=== PATIENT | female | born 1955 | race Caucasian/White ===

== ENCOUNTER → 2017-03-07 13:34 | Emergency (ER) | payer SELFPAY ==
[~2017-03-07 13:34] MED LIST: Ketorolac INJ* 60 MG/2 ML VIAL IM ONE; Lidocaine 1% INJ* 10 MG/ML 30 ML SDV ONE; Midazolam concentrated* 5 MG/ML 1 ml VIAL ONE; fentaNYL* 50 MCG/ML 5 ML VIAL (250 MCG VIAL) ONE; oxyCODONE/Acetamin 5/325 MG* TAB PO ONE
[2017-03-07 13:54] VITALS: BP 150/98
--- NOTE | 2017-03-07 15:08 | RAD ---
HISTORY: Left elbow pain status post fall COMPARISONS: None VIEWS: 2, lateral projections of the left elbow FINDINGS: Evaluation is limited by the lack of frontal projections. BONE DENSITY: Normal. BONES: There is a comminuted and displaced fracture through the proximal ulna. JOINTS: There is no arthropathy. There is a joint effusion. ALIGNMENT: There is dislocation of the radial-capitellar articulation with superior displacement of the capitellum with respect to the radial head. There is ulnar trochlear subluxation SOFT TISSUES: Unremarkable. OTHER FINDINGS: None. IMPRESSION: 1. COMMINUTED AND DISPLACED FRACTURE OF THE PROXIMAL ULNA, WITH ULNAR-HUMERAL SUBLUXATION. 2. RIGHT-HUMERAL DISLOCATION.
--- NOTE | 2017-03-07 15:09 | RAD ---
HISTORY: Left hand and wrist pain status post fall COMPARISONS: None VIEWS: 4, frontal and oblique views of the left hand and wrist FINDINGS: BONE DENSITY: Normal. BONES: There is a dorsally angulated comminuted fracture of the distal radial metaphysis with articular extension. JOINTS: There is no arthropathy. ALIGNMENT: There is no dislocation. SOFT TISSUES: Unremarkable. OTHER FINDINGS: None. IMPRESSION: DORSALLY ANGULATED FRACTURE OF THE DISTAL RADIAL METAPHYSIS WITH ARTICULAR EXTENSION
--- NOTE | 2017-03-07 15:10 | RAD ---
HISTORY: Left shoulder pain status post fall COMPARISONS: None VIEWS: 2, frontal and outlet views of the left shoulder FINDINGS: BONE DENSITY: There is diffuse osteopenia. BONES: There is no displaced fracture. JOINTS: There is mild a.c. and glenohumeral osteoarthritis. ALIGNMENT: There is no dislocation. SOFT TISSUES: Unremarkable. OTHER FINDINGS: None. IMPRESSION: NO ACUTE OSSEOUS INJURY. IF SYMPTOMS PERSIST, RECOMMEND REPEAT IMAGING.
--- NOTE | 2017-03-07 18:28 | RAD ---
Indication: Left elbow injury. Portable view of the left elbow is reviewed. There is fracture dislocation of the proximal ulna. Final film demonstrates reduction of previously seen dislocation. IMPRESSION: Fracture dislocation of the proximal ulna with reduction.
--- NOTE | 2017-03-07 19:35 | RAD ---
Indication: Left elbow and wrist fracture. CT of the forearm was obtained from the elbow to the wrist. Sagittal and coronal reconstructed images were obtained. Comminuted fracture of the distal radius is noted. Intra-articular extension is noted. The major fracture fragments appear in near anatomic alignment. The proximal radius appears to be radially dislocated relative to the capitellum. Comminuted fracture of the proximal ulna is noted with intra-articular extension. IMPRESSION: Comminuted fracture distal radius. There is a radial and likely posterior dislocation of the radius relative to the capitellum at its proximal end..
--- NOTE | 2017-03-08 00:39 | CONS ---
EMERGENCY ROOM CONSULTATION NOTE: DATE OF CONSULT: 03/07/17 - EMERGENCY DEPT HISTORY OF PRESENT ILLNESS: Ms. 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 She fell on ice today at work on left outstretched extremity. She is here with wrist and elbow pain. Arina is a relatively healthy woman. She is on no current prescription medicines. She takes occasional ibuprofen. She denies allergies. She has never had a heart attack. She does not have diabetes, has been feeling well recently except for she does smoke a pack a day, but has no chest pain and no significant shortness of breath. PHYSICAL EXAM: Her examination shows her to be an alert, oriented and appropriate female, relatively healthy. Minimal stigmata of smoking. The left upper extremity is swollen at the wrist and elbow. She has intact radial pulse and intact sensation 3 dermatomes to the hand. Her x-rays show her to have a dorsally displaced distal radius fracture, possibly with a split into the joint. The elbow shows a dislocated radial head lateral and proximal, and an olecranon fracture. Basically an adult Monteggia. I administered 1% lidocaine plain 10 cc into her elbow joint and obtained a fracture hematoma. I was assisted by my colleague, Dr. Ferguson. The two of us manipulated her elbow with some Versed and fentanyl on board and were able to achieve a reduction of the elbow dislocation. This was verified with a lateral x- ray. We then splinted the elbow. She is scheduled to get a CT scan tonight. If that verifies satisfactory reduction of the elbow, then she could go home and this could be fixed electively. This note is pending outcome of the CT scan. [id number]/[facility] #: [id number] ROBERTA
--- NOTE | 2017-03-09 07:50 | ED ---
Adan Oconnell Angela, scribed for Asael jA MD on 03/07/17 at 1426 . Upper Extremity Pain - HPI Summary HPI Summary: This pt is a 61 y/o female presenting to [facility] [place] c/o left wrist and elbow pain s/ p fall today. Pt reports she slipped on ice and fell, injuring her left elbow and wrist. She denies head strike or LOC. Pt notes she took 3 ibuprofen this morning with mild relief. She rates her pain 10/10 in severity. Her pain is mildly alleviated with ice. Denies headache, neck pain, right arm pain. - History of Current Complaint Chief Complaint: EDExtremityUpper Stated Complaint: FALL/LT UPPER EXTREMITY PAIN Time Seen by Provider: 03/07/17 14:19 Hx Obtained From: Patient Mechanism Of Injury: Fall From A Standing Position - after slipping on ice Onset/Duration: Started Hours Ago, Traumatic, Still Present Timing: Lasting Hours Severity Currently: Severe Pain Location: Elbow - left, Wrist - left Aggravating Factor(s): Movement Alleviating Factor(s): Ice, OTC Meds - ibuprofen Associated Signs & Symptoms: Positive: Negative PMH/Surg Hx/FS Hx/Imm Hx Endocrine/Hematology History: Denies: Hx Diabetes Cardiovascular History: Denies: Hx Hypertension Infectious Disease History: No Infectious Disease History: Denies: Traveled Outside the [place] in Last 30 Days - Family History Known Family History: Negative: Cardiac Disease, Hypertension, Diabetes - Social History Alcohol Use: None Substance Use Type: Reports: None Smoking Status (MU): Never Smoked Tobacco Review of Systems Negative: Fever, Chills Eyes: Negative ENT: Negative Cardiovascular: Negative Respiratory: Negative Musculoskeletal: Other - left wrist pain, left elbow pain Negative: Other - neck pain Negative: Headache All Other Systems Reviewed And Are Negative: Yes Physical Exam - Summary Physical Exam Summary: VITAL SIGNS: Reviewed. GENERAL: Patient is a well-developed and nourished female who is lying comfortable in the stretcher. Patient is not in any acute respiratory distress. HEAD AND FACE: No signs of trauma. No ecchymosis, hematomas or skull depressions. No sinus tenderness. EYES: PERRLA, EOMI x 2, No injected conjunctiva, no nystagmus. EARS: Hearing grossly intact. Ear canals and tympanic membranes are within normal limits. MOUTH: Oropharynx within normal limits. NECK: Supple, trachea is midline, no adenopathy, no JVD, no carotid bruit, no c- spine tenderness, neck with full ROM. CHEST: Symmetric, no tenderness at palpation LUNGS: Clear to auscultation bilaterally. No wheezing or crackles. CVS: Regular rate and rhythm, S1 and S2 present, no murmurs or gallops appreciated. ABDOMEN: Soft, non-tender. No signs of distention. No rebound no guarding, and no masses palpated. Bowel sounds are normal. EXTREMITIES: no cyanosis or clubbing. Left wrist with some deformity. Decreased ROM of left wrist secondary to pain. Decreased ROM of shoulder secondary to pain. Good pulses. Good capillary refill. NEURO: Alert and oriented x 3. No acute neurological deficits. Speech is normal and follows commands. SKIN: Dry and warm Triage Information Reviewed: Yes Vital Signs On Initial Exam: Initial Vitals Temp Pulse Resp BP Pulse Ox 98.7 F 76 18 150/98 99 03/07/17 13:50 03/07/17 13:50 03/07/17 13:50 03/07/17 13:50 03/07/17 13:50 Vital Signs Reviewed: Yes Diagnostics - Vital Signs Vital Signs Temp Pulse Resp BP Pulse Ox 03/07/17 13:50 98.7 F 76 18 150/98 99 - Laboratory Lab Statement: Any lab studies that have been ordered have been reviewed, and results considered in the medical decision making process. - Radiology Left wrist XR Xray Interpretation: Positive (See Comments) - IMPRESSION: Dorsally angulated fracture of the distal radial metaphysis with articular extension. Dr. Aj has reviewed this radiology report. Radiology Interpretation Completed By: Radiologist Left hand XR Xray Interpretation: Positive (See Comments) - IMPRESSION: Dorsally angulated fracture of the distal radial metaphysis with articular extension. Dr. Aj has reviewed this radiology report. Radiology Interpretation Completed By: Radiologist Left shoulder XR Xray Interpretation: No Acute Changes - IMPRESSION: No acute osseous injury. If symptoms persist, recommend repeat imaging. Dr. Aj has reviewed this radiology report. Radiology Interpretation Completed By: Radiologist Left elbow XR Xray Interpretation: Positive (See Comments) - IMPRESSION: 1. Comminuted and displaced fracture of the proximal ulna with ulnar-humeral subluxation. 2. Right -humeral dislocation. Dr. Aj has reviewed this radiology report. Radiology Interpretation Completed By: Radiologist Left elbow XR s/p reduction Xray Interpretation: Positive (See Comments) - IMPRESSION: Fracture dislocation of the proximal ulna with reduction. Dr. Aj has reviewed this radiology report. Radiology Interpretation Completed By: Radiologist Re-Evaluation - Re-Evaluation First Eval Re-Evaluation Time: 17:05 Comment: Dr. Cheek in to see the pt. Course/Dx - Course Course Of Treatment: This pt is a 61 y/o female presenting to [facility] c/o left wrist and elbow pain s/p fall today. Pt reports she slipped on ice and fell, injuring her left elbow and wrist. She denies head strike or LOC. Pt notes she took 3 ibuprofen this morning with mild relief. She rates her pain 10/10 in severity. Her pain is mildly alleviated with ice. Denies headache, neck pain, right arm pain. Left wrist XR shows dorsally angulated fracture of the distal radial metaphysis with articular extension. Left elbow XR shows 1. Comminuted and displaced fracture of the proximal ulna with ulnar-humeral subluxation. 2. Right-humeral dislocation. I discussed pts case with Dr. Cheek and Dr. Ferguson, orthopedists, who came and requested a conscious sedation for reduction of the fractures. They successfully reduced the fractures and recommended a CT of the left elbow and wrist, they recommend for the pt to be discharged home and follow up at their offices. She will be given a prescription for [place] for the pain. She was placed in a shoulder immobilizer. Pt is hemodynamically stable, alert and oriented x3. She is tolerating PO, therefore she will be discharged home. Assessment/Plan: PROCEDURE NOTE: Procedural Sedation. Indications: Fracture reduction. [place] Protocol: a timeout was performed and the correct patient and site were verified. Consent: The risks and benefits of monitored anesthesia care, including the risk of aspiration, deep sedation requiring airway management including possible intubation, nausea and vomiting and the risks of not performing the procedure, including severe pain and inability to complete the procedure, were all discussed with the patient. The alternatives of performing the procedure, including local anesthesia and IV analgesia, also discussed. The patient has a ride home available. ASA Class: II-mild systemic disease. Pre-anesthesia evaluation, including history, exam, and informed consent is documented in the ED note above. Monitoring: Continuous monitoring of heart rate, respiratory rate, pulse oximetry and ETCO2. Supplemental oxygen prior to and during procedure via nasal cannula. Resuscitation equipment available at the bedside during sedation. The patient received Versed and Fentanyl and dosages were recorded on the sedation form. The patient was recovered from the sedation without complication or incident. Patient returned to pre-sedation level of awareness. The monitoring was discontinued at this time. Post-anesthesia evaluation: Respiratory function, cardiovascular function, temperature, and mental status did return to pre-anesthetic state. Pain is controlled. - Diagnoses Differential Diagnosis/HQI/PQRI: Positive: Bursitis, Contusion, Fracture (Closed ), Strain, Sprain Provider Diagnoses: Elbow fracture, Wrist fracture - Physician Notifications Discussed Care of Patient With: Esteban Cheek Time Discussed With Above Provider: 16:30 Instructed by Provider To: MD Will See In ED - I discussed pt care with Dr. Cheek, orthopedist, who will come consult on the pt. Discharge - Discharge Plan Condition: Stable Disposition: HOME Prescriptions: HYDROcodone/ACETAMIN 5-325 MG* [[place] 5-325 TAB*] 1 tab PO Q6H PRN #12 tab MDD 4 PRN Reason: Pain Patient Education Materials: Elbow Fracture (ED), Wrist Fracture in Adults (ED) , Procedural Sedation (ED) Referrals: Ester HAMILTON,Isaiah Nieves [Medical Doctor] - Esteban Cheek MD [Medical Doctor] - Ibrahima Ferguson MD [Medical Doctor] - Additional Instructions: Please follow up with Dr. Cheek or Dr. Ferguson, from orthopedics. RETURN TO THE ED FOR ANY WORSENING SYMPTOMS. The documentation as recorded by the Adan wells Angela accurately reflects the service I personally performed and the decisions made by Jean Marie shaw Walter, MD.
== END | disposition home or self-care (01) ==
LOC: ED 13:34
DX: S42.402A Unspecified fracture of lower end of left humerus, initial encounter for closed fracture (principal); S62.102A Fracture of unspecified carpal bone, left wrist, initial encounter for closed fracture; M25.522 Pain in left elbow; W19.XXXA Unspecified fall, initial encounter; Y92.9 Unspecified place or not applicable; W00.9XXA Unspecified fall due to ice and snow, initial encounter
CPT/HCPCS: 96372; 99283; A9270-GY; J1885; J2250; J3010

== ENCOUNTER 2017-03-09 09:08 | Day surgery (SDC) | payer SELFPAY ==
--- NOTE | 2017-03-09 03:41 | HP ---
HISTORY AND PHYSICAL: DATE OF ADMISSION: 03/09/17 PLANNED PROCEDURE: Left olecranon, coronoid process, open reduction internal fixation for a proximal ulna and olecranon fracture, dislocation of the elbow. Also, planned closed or open reduction of radial head. Open reduction internal fixation left distal radius. 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 The patient was walking in a parking lot and slipped on some ice. She landed on her left elbow and then wrist. The patient thinks that her upper body, her torso, then landed on her elbow and wrist. The patient had significant pain, swelling, and some deformity about the left elbow and wrist and [place] [facility] [place] Surgery consult was called. Dr. Cheek saw the patient and I joined him. Dr. Cheek performed a hematoma block of the proximal ulna, left, fracture and we attempted a closed relocation of a dislocated left elbow radial head. X-ray, lateral of the left elbow appeared to demonstrate relocation. We next placed a posterior splint and sugar-tong forearm splint, left. The patient was neurovascularly intact before and after that closed reduction in the emergency department. CT scan was then performed. CT scan confirmed what the x-ray had demonstrated, that the patient had a left proximal ulna fracture including the olecranon and coronoid process with a dislocation posteriorly of the left radial head, a so called adult Monteggia fracture. The patient also had a displaced intraarticular left distal radius fracture. CT demonstrated that the radial head was in fact dislocated posterolaterally. It demonstrated a level of comminution about the coronoid process with a larger fracture fragment medially. Fracture of the coronoid enters the semilunar notch. Then, the main oblique fracture of the proximal ulna is the fracture line that shows significant displacement and shortening. I measured 4 cm of shortening. There is also a displaced intraarticular fracture of the left distal radius. There is a intraarticular fracture line that runs sagittally. All other smaller pieces of comminution, there are large fragments of the volar rim and dorsal rim of the distal radius. Discussed with the patient a closed relocation of radial head under general anesthesia with a more elective fixation of fractures. Discussed admission to hospital. Ultimately, we decided as the patient's pain was manageable and she was neurovascularly intact distally and she greatly preferred to go home, that we would discharge the patient from the emergency department. The patient's surgery will be planned to occur within days so as to minimize time with radial head dislocated. I and the patient and her were comfortable with the plan. The patient saw her primary care physician this morning as I had directed. He optimized and cleared her for surgery. The patient presented to clinic today for history and physical for planned procedure tomorrow, 03/09/17. The patient acknowledges some pain when she is not bracing her elbow against her chest. She acknowledges some increased swelling of the fingers. The pain has been manageable with a hydrocodone derivative product. PAST MEDICAL HISTORY: None. PAST SURGICAL HISTORY: Bilateral tubal ligation. MEDICATIONS: [place] p.r.n. given by the emergency department. ALLERGIES: No known drug allergies. 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 The patient has a 30-pack year history, approximate. The patient described smoking 3 quarters of a pack per day times approximately 40 years. REVIEW OF SYSTEMS: No headache, nausea, or vomiting. No chest pain, heart palpitations, or shortness of breath. No numbness and tingling in the left upper extremity. No other joint pain. PHYSICAL EXAMINATION Height is 64.1 inches and weight is 168 pounds for a BMI of 28.8. Pain level is 10/10. No acute distress, alert and oriented, appropriate mood and affect, appropriate dress and hygiene, non-antalgic gait, well coordinated bilateral upper and lower extremities. Left upper extremity exam reveals a posterior splint from the left hand to the left upper arm. I have also put in place a sugar-tong forearm splint, which extends to the level of the metacarpophalangeal joints volarly. The patient does have increased swelling of her fingers. Neurovascularly intact distally. IMAGING: I reviewed x-rays pre and post attempted relocation maneuver as well as CT scan of the left wrist and elbow from 03/07/17. There is a left radial head posterolateral dislocation without radial head fracture. There is a comminuted proximal ulna fracture. There is an oblique fracture line of the proximal ulna, proximal at the level of the coronoid process. There is a fracture, comminuted of the coronoid process. It appears as though the most solid, largest fragment of the coronoid processes medial that fracture line extends into the semilunar notch that includes the coronoid process. These films also demonstrate a comminuted displaced fracture of the distal radius, left. There is some displacement. Volar tilt is lost, but only several degrees of dorsal tilt are present. There is an intraarticular fracture line in the coronal plane that is a correction from earlier, that intraarticular fracture line is in the coronal rather than the sagittal plane. There is a predominant volar rim and predominant dorsal rim fragment, intraarticular. ASSESSMENT: 1. Left Monteggia fracture type 2A (fracture dislocation, left elbow) with complex left proximal ulna fracture, displaced, comminuted. Includes fractures of olecranon and coronoid process. Radial head dislocation, posterolateral. 2. Displaced, intraarticular, 3 or more pieces, fracture of the left distal radius. PLAN: 1. Continue in the splint. Use sling for comfort. 2. I recommended ice over the elbow and wrist as well as elevation to minimize swelling intraoperatively or preoperatively. 3. I prescribed the patient Percocet to take as needed for pain control. 4. To the operating room tomorrow, 03/09/17 for an open reduction internal fixation left proximal ulna, including olecranon and coronoid process as well as open reduction internal fixation left distal radius. 5. I spoke with the patient and her about several alternative scenarios for procedure. If I found the patient too swollen to perform open procedure, I might consider closed reduction under general anesthesia of the radial head and if I found the elbow to be stable through a reasonable range of motion, I might consider splinting the patient and doing definitive surgery next week. Another option would be if the proximal ulna open reduction internal fixation takes a significant period of time, I would consider performing only that component of the procedure and delaying the distal radius open reduction internal fixation until the following week. The patient and her had no questions about that. I briefly discussed risks and potential complications of procedures. The patient will be nothing by mouth after midnight. [id number]/[facility] #: [id number] [facility]Meet
[~2017-03-09 09:08] MED LIST changes: +Buffered Lidocaine 0.9% SYRIN* 5 ML/SYR SYRINGE INTRADERM ONE; -Ketorolac INJ* 60 MG/2 ML VIAL IM ONE; -Lidocaine 1% INJ* 10 MG/ML 30 ML SDV ONE; -Midazolam concentrated* 5 MG/ML 1 ml VIAL ONE; -fentaNYL* 50 MCG/ML 5 ML VIAL (250 MCG VIAL) ONE; -oxyCODONE/Acetamin 5/325 MG* TAB PO ONE
[2017-03-09] MEDS ORDERED: ceFAZolin 2 GM PREMIX (*) 2 GM/50 ML BAG IVPB ONE (09:33)
[2017-03-09] MEDS ORDERED: Buffered Lidocaine 0.9% SYRIN* 5 ML/SYR SYRINGE ONE (09:33)
[2017-03-09] MEDS ORDERED: fentaNYL* 50 MCG/ML 2 ML VIAL (100 MCG VIAL) ONE ×3 (11:19→14:30)
[2017-03-09] MEDS ORDERED: Midazolam* 1 MG/ML 2 ML VIAL (2 MG) ONE (11:19)
[2017-03-09] MEDS ORDERED: Propofol* 10 MG/ML 20 ML BTL IV PUSH ONE (11:19)
[2017-03-09] MEDS ORDERED: Atracurium* 10 MG/ML 10 ML VIAL ONE (12:04)
[2017-03-09] MEDS ORDERED: Bupivacaine 0.5% SDV PF* 10-30ML VIAL ONE (12:07)
[2017-03-09] MEDS ORDERED: Dexamethasone IV* 4 MG/ML 1 ML (4 MG) ONE (12:55)
[2017-03-09] MEDS ORDERED: Metoprolol Tartrate IV* 1 MG/ML 5 ML VIAL ONE (15:03)
[2017-03-09] MEDS ORDERED: Phenylephrine INJ* 10 MG/ML 1 ML VIAL (10 MG) ONE (15:12)
[2017-03-09] MEDS ORDERED: Ondansetron INJ* 2 MG/ML VIAL ONE (16:09)
[2017-03-09] MEDS ORDERED: Naloxone* 0.4 MG/ML 1 ML VIAL IV PRN (16:11)
[2017-03-09] MEDS ORDERED: HYDROmorphone INJ* 1 MG/ML CARPUJECT SYRINGE IV PRN (16:11)
[2017-03-09] MEDS ORDERED: DiMENhydriNATE IV* 50 MG/ML VIAL IV PUSH PRN (16:11)
[2017-03-09] MEDS ORDERED: oxyCODONE TAB* 5 MG TAB PO PRN (16:11)
[2017-03-09] MEDS ORDERED: oxyCODONE/Acetamin 5/325 MG* TAB PO PRN (16:11)
[2017-03-09] MEDS ORDERED: Ondansetron INJ* 2 MG/ML VIAL IV PRN (16:11)
[2017-03-09] MEDS ORDERED: fentaNYL* 50 MCG/ML 2 ML VIAL (100 MCG VIAL) IV PRN (16:11)
[2017-03-09] MEDS ORDERED: Ketorolac INJ* 30 MG/ML 1 ML VIAL ONE (16:26)
--- NOTE | 2017-03-09 17:51 | RAD ---
Indication: Follow-up left traumatic ulnar fracture. 4 views of left elbow demonstrates internal fixation of ulnar fracture with multiple screws and a plate. Fracture fragments appear in near anatomic alignment. IMPRESSION: Internal fixation proximal ulnar fracture.
[2017-03-09] MEDS ORDERED: oxyCODONE/Acetamin 5/325 MG* TAB ONE (17:52)
[2017-03-09 18:27] VITALS: BP 117/73
--- NOTE | 2017-03-14 07:22 | OP ---
DATE OF OPERATION: 03/09/17 [facility] DATE OF : 55 SURGEON: Ibrahima Ferguson MD. NURSERY RN: CICI Jett. A physician news assistant was required for the length of the procedure for positioning, assistance with exposure, instrumentation, retraction, and closure. ANESTHESIOLOGIST: Juan José Cardenas MD. ANESTHESIA: General anesthesia, local anesthesia 10 cc at 0.5% Marcaine without epinephrine, local anesthesia. PRE-OP DIAGNOSES: 1. Left elbow Monteggia fracture, type IIA, with fracture, comminuted, displaced, of the left olecranon and coronoid process, and a dislocated radial head. 2. Displaced fracture, left distal radius, intraarticular, 3 or more pieces. POST-OP DIAGNOSES: 1. Left elbow Monteggia fracture, type IIA, with fracture, comminuted, displaced, of the left olecranon and coronoid process, and a dislocated radial head. 2. Displaced fracture, left distal radius, intraarticular, 3 or more pieces. PROCEDURES: 1. Open treatment left elbow Monteggia fracture dislocation with internal fixation. 2. Open reduction and internal fixation, proximal ulna, olecranon. 3. Open reduction and internal fixation, left proximal ulna, coronoid. 4. Decompression in situ left ulnar nerve, at the cubital tunnel. ANTIBIOTICS: 2 g Ancef IV. TOURNIQUET TIME: 120 minutes at 250 mmHg. SPECIMEN: None. IMPLANTS: A 2.7/3.5 variable angle olecranon left locking plate, 4 hole. Also 4 screws of size 2.7 mm, fully threaded, were utilized. IV FLUIDS: 2450 cc lactated Ringer's. ESTIMATED BLOOD LOSS: Less than 200 cc. 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 The patient was walking in a parking lot and slipped and fell on her left elbow and wrist and her body landed on her elbow and wrist. The patient came to the emergency department at [facility] [place]. She was seen by Dr. Cheek and then myself. X-rays and CT scan showed a Monteggia fracture dislocation of the left elbow with fractures at the left olecranon and coronoid process as well as a dislocation of the radial head. The 2D CT images made the fracture lines somewhat difficult to fully discern. A 3D reconstruction made visualization of the fracture fragments much easier. See my history and physical for full history of injury and treatment. Closed relocation was attempted in the emergency room prior to CT scan. It was unsuccessful. The patient was discharged home and was told she would need surgery within 48 hours. The patient saw her primary care physician next morning and then saw me in clinic for history and physical. We scheduled surgery for today, 03/09/17. The patient had been placed in a posterior elbow splint and sugar tong forearm splint. She also had an intraarticular displaced left distal radius fracture noted on x-ray and CT scans. We discussed preoperatively risks and potential complications of surgery including bleeding, infection, nerve or blood vessel injury, elbow pain, stiffness, osteoarthritis, recurrence of dislocation as well wrist pain, stiffness, osteoarthritis. Prior to the procedure, I discussed 2 possibilities. One is that if the soft tissues were poor quality, once the splint was taken down, I would attempt a closed relocation and splinting and delay surgery. The other eventuality would be if the open reduction internal fixation of the elbow was sufficiently complex and long, I would consider delaying the wrist, distal radius component of the procedure until next week. The patient and her family agreed and understood. DESCRIPTION OF PROCEDURE: Preoperatively, the patient signed a written consent. Operative extremity was marked in the preoperative holding. The patient was taken back to the operating room and placed supine on operating room table. The patient was sedated and intubated. The patient was then placed in a lateral decubitus position with the left side up. Axillary roll was placed. Bony prominences were padded. Patterson bag was hardened. An upper arm acevedo, alexandra type was applied to the table. Nonsterile tourniquet was applied. The left upper extremity was prepped and draped. Surgical time-out was performed. Tourniquet was elevated to 120 mmHg after the Esmarch was applied. The soft tissues and skin were noted to be healthy enough for an open surgery. Posterior skin incision was made laterally around the tip of the olecranon. I continued dissection through soft tissues with deep knife and spreading dissection with scissors. I dissected down to the olecranon fracture. This had clots removed with a sponge and then irrigation for improved visualization. Next, I decompressed the ulnar nerve. I knew I would to be doing much medial dissection to expose the coronoid process and therefore decompression and the visualization of the ulnar nerve would be required. I identified the ulnar nerve and released it proximal to the medial epicondyle. I then dissected down to the ulnar nerve at the level of the medial epicondyle , cutting through Hoffman's ligament. I was able to follow the ulnar nerve nicely from perhaps 5-cm proximal to the cubital tunnel to between the two heads of the flexor carpi ulnaris. I had studied my 3D reconstructions of the CT scan carefully preoperatively. It is clear that there was a sagittal oriented fracture line down the middle of the coronoid process. I decided preoperatively that I would reconstruct the coronoid by fixing these 2 coronoid fragments first. I next improved my visualization of the coronoid with the Kathryn and Scham approach to the coronoid. I released FCU (flexor carpi ulnaris) fascia off of the olecranon, but also off its origin of the medial epicondyle. I was able to lift the FCU, ulnar head off of the coronoid. As I had decompressed the ulnar nerve, I know exactly where that was and was able to safely retract it while releasing the FCU tissue up off of the coronoid process and visualized more and more of the coronoid. I did not visualize the tip of the coronoid nor did I release the MCL ligament. However, this improved exposure of the medial aspect of the coronoid, allowed me to access the place where I knew I would be placing fixation through. Once I had improved exposure of the coronoid, I next went about reducing the coronoid fracture fragments. I did so with my fingers and then I placed a bone clamp. To assess the quality of reduction, I was able to visualize these fragments posteriorly. I also used a dental mirror to visualize the quality of the reduction, from within the joint. The reduction looked excellent. I next placed a 2.7-mm fully threaded screw across the 2 components of the coronoid. Fixation was excellent. I made sure that these were not overly wrong. Bite in the bone was excellent. Now that I had reduced and fixed the coronoid, I next desired to reduce and fix the olecranon and coronoid, combined fragment to the remainder of the proximal ulna, which represented more distal fracture fragment. I reduced this second large fracture line with bone clamps after curetting and rongeuring any fibrous tissue remaining. Bone clamps maintained the reduction and then I placed two 2.57-mm fully threaded screws from lateral to anteromedial across this fracture site. Reduction was maintained well. It should be stated that all this reducing and fixation work with lag screws was done after I relocated the radial head. After all lag screws have been placed, I liked my reduction and the time was up to supplement this fixation. I next picked an appropriate length olecranon plate. I reduced it to bone with 2 nonlocking screws and then filled it with locking screws proximal and distal to the fracture sites. The elbow had no crepitus with full flexion and extension of the elbow and pronation and supination of the forearm. No blocks to motion. With full range of motion, the radial head was stable and located. There was no instability with valgus stress at the elbow. With varus stress at the elbow, there was increased opening about the lateral elbow. I briefly thought about doing a lateral ulnar collateral ligament repair, but decided that the lateral side of the elbow should tighten up postoperatively. Irrigation. I next closed the FCU fascia to ECU and anconeus fascia over the plate distally through proximally and closed the triceps fascia that I had split over the plate. I made sure not to close too much of the fascia medially because when I did I felt that it was constricting the ulnar nerve from its free, unconstricted course that I have been careful to establish intraoperatively. Closure of fascial layer was with [id number] stitches using Vicryl 0 suture. I then closed the subcutaneous tissue with buried simple stitches using Vicryl 2.0 suture. Closure of the skin with mildred. Xeroform. 10 cc of local anesthesia were injected, 0.5% Marcaine without epinephrine. 4x4s, sterile Webril. The elbow was flexed to 70 degrees in a posterior splint followed by sugar tong forearm splint were placed. The patient was awakened and brought to the PACU. I made a decision intraoperatively based on the length of the procedure after I had completed my open reduction internal fixation about the elbow, that it would be best to wait and perform the distal radius open reduction and internal fixation on a separate day. The splint that I applied extended beyond the wrist and so also stabilized the left distal radius fracture. DISPOSITION: The patient was given Keflex, 7-day course for infection prophylaxis and Percocet as needed for pain control. She was provided a sling. She was told that we would be scheduling open reduction and internal fixation of left distal radius in the operating room next week. [id number]/[facility] #: [id number] MTDD
--- NOTE | 2017-03-17 14:55 | RAD ---
INDICATION: Traumatic fracture of the right ulna status post operative reduction and internal fixation. COMPARISON: Comparison is made with a prior x-ray study of the right elbow from March 07, 2017. TECHNIQUE: 13 seconds of intermittent fluoroscopic guidance were provided and 16 spot films of the right elbow were obtained in the operating room. FINDINGS: The films demonstrate operative reduction internal fixation of a fracture of the proximal ulna. There is a surgical metallic plate present along the posterior aspect of the proximal ulna transfixed with multiple screws spanning the fracture fragments. There are also interfragmentary screws. The bones are in normal alignment. IMPRESSION: INTRAOPERATIVE CONTROL FILMS. CPT II Codes: 6045F
== END 2017-03-09 18:00 | disposition home or self-care (01) ==
LOC: OR 09:08
PROVIDERS: ATTEND Orthopaedic Surgery
DX: S52.272A Monteggia's fracture of left ulna, initial encounter for closed fracture (principal); S52.572A Other intraarticular fracture of lower end of left radius, initial encounter for closed fracture; W00.2XXA Other fall from one level to another due to ice and snow, initial encounter; Y92.481 Parking lot as the place of occurrence of the external cause; F17.210 Nicotine dependence, cigarettes, uncomplicated
CPT/HCPCS: 76000; A9270-GY; C1713; C1776; J0690; J1100; J1885; J2250; J2405; J2704; J3010; J3490

== ENCOUNTER 2017-03-16 05:51 | Day surgery (SDC) | payer OTHER ==
[2017-03-16] MEDS ORDERED: Dexamethasone IV* 4 MG/ML 1 ML (4 MG) ONE (05:57)
[2017-03-16] MEDS ORDERED: Famotidine IV* 10 MG/ML 2 ML (20 mg) ONE (05:57)
[2017-03-16] MEDS ORDERED: ceFAZolin 1 GM in Dextrose (*) 2 GM/100 ML BAG IVPB ONE (05:57)
[2017-03-16] MEDS ORDERED: Buffered Lidocaine 0.9% SYRIN* 5 ML/SYR SYRINGE ONE (05:57)
[2017-03-16] MEDS ORDERED: Dexamethasone IV* 4 MG/ML 1 ML (4 MG) IV SLOW PU ONE (06:00)
[2017-03-16] MEDS ORDERED: Famotidine IV* 10 MG/ML 2 ML (20 mg) IV ONE (06:00)
[2017-03-16] MEDS ORDERED: Naloxone* 0.4 MG/ML 1 ML VIAL IV PRN (06:43)
[2017-03-16] MEDS ORDERED: HYDROmorphone INJ* 1 MG/ML CARPUJECT SYRINGE IV PRN (06:43)
[2017-03-16] MEDS ORDERED: fentaNYL* 50 MCG/ML 2 ML VIAL (100 MCG VIAL) IV PRN (06:43)
[2017-03-16] MEDS ORDERED: Ondansetron INJ* 2 MG/ML VIAL IV PRN (06:43)
[2017-03-16] MEDS ORDERED: Scopolamine 1.5 mg* PATCH TRANSDERM PRN (06:43)
[2017-03-16] MEDS ORDERED: oxyCODONE TAB* 5 MG TAB PO PRN (06:43)
[2017-03-16] MEDS ORDERED: PROCHLORPERAZINE INJ 5 MG/ML 2 ML VIAL IV PRN (06:43)
[2017-03-16] MEDS ORDERED: Midazolam* 1 MG/ML 2 ML VIAL (2 MG) ONE (06:53)
[2017-03-16] MEDS ORDERED: fentaNYL* 50 MCG/ML 2 ML VIAL (100 MCG VIAL) ONE (06:53)
[2017-03-16] MEDS ORDERED: Rocuronium* 10 MG/ML VIAL ONE (06:54)
[2017-03-16] MEDS ORDERED: Propofol* 10 MG/ML 20 ML BTL IV PUSH ONE (07:09)
[2017-03-16] MEDS ORDERED: Lidocaine 2% PF * 5 ML VIAL ONE (07:10)
[2017-03-16] MEDS ORDERED: HYDROmorphone INJ* 1 MG/ML CARPUJECT SYRINGE ONE ×2 (08:43→09:43)
[2017-03-16] MEDS ORDERED: Bupivacaine 0.5% SDV PF* 10-30ML VIAL ONE (10:05)
[2017-03-16] MEDS ORDERED: Ketorolac INJ* 30 MG/ML 1 ML VIAL ONE (10:07)
[2017-03-16] MEDS ORDERED: Ondansetron INJ* 2 MG/ML VIAL ONE (10:07)
--- NOTE | 2017-03-16 11:07 | RAD ---
INDICATION: Left wrist fracture, pain, trauma COMPARISONS: March 07, 2017 TECHNIQUE: Fluoroscopy was provided for a surgical procedure. Total fluoroscopy time is: 34 seconds FINDINGS: Spot images demonstrate internal fixation of the left wrist. IMPRESSION: FLUOROSCOPY WAS PROVIDED FOR A SURGICAL PROCEDURE CPT II Codes: 6045F
--- NOTE | 2017-03-16 11:59 | RAD ---
Indication: Traumatic proximal ulnar fracture. 3 views of the left elbow demonstrates internal fixation of a olecranon fracture with a plate and screws. Alignment appears satisfactory. IMPRESSION: Internal fixation proximal ulnar fracture.
[2017-03-16 12:08] VITALS: BP 128/75
--- NOTE | 2017-03-17 17:06 | OP ---
OPERATIVE REPORT: DATE OF OPERATION: 03/16/17. DATE OF : 1955. SURGEON: Ibrahima Ferguson MD. TECHNICAL TRAINING INSTRUCTOR: CICI Dominguez. A physician purchasing administrative assistant was required for positioning, instrumentation, retraction, and assistance with closure. ANESTHESIOLOGIST: Radha Campos MD. ANESTHESIA: General anesthesia, local anesthesia with 10 cc of 0.5% Marcaine without epinephrine. PRE-OP DIAGNOSIS: 1. Left distal radius fracture, intraarticular, 3 or more pieces. 2. Status post recent open reduction and internal fixation of left Monteggia fracture, type 2 A. POST-OP DIAGNOSIS: 1. Left distal radius fracture, intraarticular, 3 or more pieces. 2. Status post recent open reduction, internal fixation of left Monteggia fracture, type 2 A. OPERATIVE PROCEDURE: 1. Open reduction and internal fixation left distal radius fracture, intraarticular, displaced, 3 or more pieces. 2. Left wrist tenotomy, brachioradialis, open. ANTIBIOTICS: Ancef 2 g IV. IV FLUIDS: 1500 cc of crystalloid. TOURNIQUET TIME: 120 minutes at 250 mmHg. SPECIMEN: None. IMPLANTS: Synthes 3-hole Volar locking plate, distal radius, standard width with locking 2.4 mm scre ws and 1 nonlocking 2.7 mm screw proximally. COMPLICATIONS: None. ESTIMATED BLOOD LOSS: Minimal. 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 The patient was walking in her parking lot and slipped down on some ice at work and landed on her lef t elbow and then wrist. I met the patient in the emergency department at [facility] [place] where the patient was diagnosed with a left Prosper eggia fracture, type 2A, with complex left proximal ulnar fracture, displaced, comminuted including f ractures of the olecranon and the coronoid process as well as radial head dislocation, posterolatera l. Patient was also diagnosed with a displaced intraarticular fracture of the left distal radius. Di agnosis was made by x-ray and a CT scan. On 03/09/17, patient underwent open reduction and internal fixation of the left proximal ulna with op en reduction of the radial head. Due to the length and complexity of the operation, we thought it be st to delay the distal radius, separate injury to surgery on a separate day. That was understood goblanco dover into that surgery on 03/09/17 and that is what we ended up doing. At the conclusion of the operation on 03/09/17, the patient was placed in a posterior splint from the hand to the upper arm as well as sugar tongue splint at the forearm. The patient has been moving her fingers. Patient reports decreased pain. The patient presented today for a separate surgery on the left wrist. I discussed the risks and potential complications of the surgery including bleeding, infection, nerve or blood vessel injury, wrist pain, stiffness, osteoarthritis, hardware failure. DESCRIPTION OF PROCEDURE: Preoperatively, the patient signed a written consent. Operative extremity was marked in the preoperative holding. The patient was taken back to the operating room and placed supine on the operating room table. Hand table was attached. Patient was sedated and intubated. It should be noted that at this point, anesthesia noted some cardiac rhythm irregularities. A suprav entricular tachycardiac was mentioned. Blood pressure support was required. The patient oscillated between a normal sinus rhythm, SVT, an atrial fibrillation. Eventually, she settled into a normal si nus rhythm. Anesthesiologist discussed with several other anesthesiologists including anesthesiologis t from my case on 03/09/17. We were comfortable proceeding forward with surgery. The splint was taken down. The surgical incision site at the elbow was clean, dry and intact. A tourniquet was applied to the proximal left upper arm. The left upper extremity was prepped with B etadine. Draping was performed of the left upper extremity. A surgical time-out performed. Esmarch was applied and the tourniquet was elevated to 250 mmHg. FCR tendon was marked and then 8 cm skin incision was made overlying the FCR. I dissected down with a knife and then dissection scissors to the sheath of the FCR. This was incised with knife and then s cissors. FCR was retracted ulnarly. I then incised the FCR sub-sheath with knife and then scissors. FPL was retracted ulnarly exposing the pronator quadratus. Pronator quadratus was incised off the radial muscle border of the distal radius using sharp dissection. There was peeled off the radius us ing a knife and then periosteal elevator. Horizontal fracture line, extraarticular was identified, opened up and irrigated. No significant fibr ous tissue present there. Retractors placed. Reduction attempted. A plate was then placed, standard width, 3-hole Synthes distal locking plate. It was pinned in place with 2 K-wires. The C-arm was brought in. It showed that the width of the plate was correct, standard width. Positi oning the plate needed improvement. Also, the reduction of the transverse fracture line was very poo r with continued radial translation of the distal fracture fragments. The intraarticular coronal spl it fragment appeared well reduced. I tried several additional times to reduce the main transverse fracture line. The distal fragments 1 and 2 remained radial. I then decided to release the brachioradialis tendon, tenotomy, off the dist al fractured fragments. I believe this helped significantly with the reduction. I again attempted a reduction. I found that the fracture fragments keyed in more nicely along the ul owen border of the distal radius. I placed 2 K-wires through the styloid process or near the styloid process across the fracture site. This maintained the distal fracture fragments well reduced. I pablito lied the volar locking plate. I pinned in place proximally and distally. I obtained C-arm imaging, which showed excellent placement of plate, excellent reduction of bone frag ments. I therefore decided to place screws in the plate. I placed a 2.4 mm screw in the oval hole proximall y. I did not tight it down at all. I noted that the sagittal view showed my volar tilt to be neutra l and I wanted to restore a little bit of volar tilt and I thought reduction to the plate would do th is. I placed a non-locking screw through the plate distally through one of the ulnar holes. I thought th is would both reduce the distal fracture fragments, through that coronal split. It would also reesta blish some volar tilt to the reduction. After placing this non-locking screw, I placed 2 locking scre ws distally, one in distal ulnar hole and one in the radial styloid distal hole in the plate. I then , while trying to accentuate my reduction of the bone manually, I pulled both K-wires and tightened m y proximal 2.4 mm screw in the oval hole. I then obtained radiographs in multiple views and I checked for hardware placement and reduction; bot h appeared excellence. I then filled my 2 other screw holes proximally with 2.4 mm locking screws and the remainder of my sc rew holes distally with 2.4 mm locking screws. I exchanged the non-locking screw distally for a lock ing screw, 2 mm shorter in length. I then exchanged the 2.4 mm non-locking screw proximally in the oval hole for a 2.7 mm non-locking sc rew, which got better purchase. I believe I may have made that 2- mm shorter as well. I obtained final films. Irrigation. I placed a closure between the FCR subsheath radially and the pr onator quadratus. This was with simple stitches. I then closed the subcutaneous layer with buried s imple stitches using Vicryl 2-0 suture. I closed the skin with a running stitch using nylon 4-0 sutu re. Xeroform. I placed 10 cc of Marcaine 0.5% without epinephrine in the subcutaneous tissue. The tourniquet was dropped. 4x4s and then sterile Webril were placed. I also placed Xeroform, sterile 4 x4s, and Webril around the elbow incision of the 03/09/17 surgery. I next placed a posterior splint from the upper arm to the metacarpophalangeal joints. I also placed a sugar tong volar dorsal forearm splint. I overwrapped it with Franklin bandage. Patient placed in a s ling. DISPOSITION: The patient was awakened and back to the PACU. Patient will go home. Patient has one m ore day remaining of Keflex at this time due to her 03/09/17 surgery. She will continue on that for one additional day. She was refilled on her Percocet to take as needed for pain control. She will f ollow up with me in clinic 03/21/17. At that clinic visit, we will take the patient's splint down and place her in a hinged elbow brace. Prescription for hinged elbow brace was provided today. I will call the patient and get her to make a physical therapy appointment with Tyron Cavazos for gucci lynn next week, hand therapist. [id number]/[facility] #: [id number]
[2017-03-19] MEDS ORDERED: Scopolamine PATCH Remove* 1 NOTE MISC PATCH OFF ONE (06:43)
== END 2017-03-16 12:09 | disposition home or self-care (01) ==
LOC: OR 05:51
PROVIDERS: ATTEND Orthopaedic Surgery
DX: S52.572A Other intraarticular fracture of lower end of left radius, initial encounter for closed fracture (principal); W00.0XXA Fall on same level due to ice and snow, initial encounter; Y92.481 Parking lot as the place of occurrence of the external cause; Y99.0 Civilian activity done for income or pay; F17.210 Nicotine dependence, cigarettes, uncomplicated; Z68.28 Body mass index [BMI] 28.0-28.9, adult; I47.1 Supraventricular tachycardia; I48.91 Unspecified atrial fibrillation
CPT/HCPCS: 76000; C1713; C1776; J0690; J1100; J1170; J1885; J2250; J2405; J2704; J3010

== ENCOUNTER 2018-07-05 08:38 | Day surgery (SDC) | payer OTHER ==
[~2018-07-05 08:38] MED LIST changes: -Buffered Lidocaine 0.9% SYRIN* 5 ML/SYR SYRINGE INTRADERM ONE; +Buffered Lidocaine 1% SYRIN* 1 ML/SYRINGE INTRADERM ONE; +Lactated Ringers 1000 ML Bag* 1,000 ML IV SCH
[2018-07-05] MEDS ORDERED: ceFAZolin 2 GM PREMIX in ORs 2 GM/50 ML BAG IVPB ONE (08:57)
[2018-07-05] MEDS ORDERED: Buffered Lidocaine 1% SYRIN* 1 ML/SYRINGE INTRADERM ONE (08:57)
[2018-07-05] MEDS ORDERED: Rocuronium* 10 MG/ML VIAL ONE (09:25)
[2018-07-05] MEDS ORDERED: fentaNYL* 50 MCG/ML 2 ML VIAL (100 MCG VIAL) ONE (09:25)
[2018-07-05] MEDS ORDERED: Lidocaine 2% PF * 5 ML VIAL ONE (09:25)
[2018-07-05] MEDS ORDERED: Propofol* 10 MG/ML 20 ML BTL ONE (09:25)
[2018-07-05] MEDS ORDERED: Midazolam* 1 MG/ML 2 ML VIAL (2 MG) ONE (09:25)
[2018-07-05] MEDS ORDERED: ROPIVACAINE 5 MG/ML 30 ML BTL (0.5%) ONE (09:27)
[2018-07-05] MEDS ORDERED: Dexmedetomidine* 200 MCG/2 ML 2 ML VIAL ONE (09:35)
[2018-07-05] MEDS ORDERED: Ondansetron INJ* 2 MG/ML VIAL ONE ×2 (09:36→12:41)
[2018-07-05] MEDS ORDERED: Ketorolac INJ* 30 MG/ML 1 ML VIAL ONE ×2 (09:36→12:41)
[2018-07-05] MEDS ORDERED: Metoclopramide IV* 5 MG/ML 2 ML VIAL ONE ×2 (09:36→12:41)
[2018-07-05] MEDS ORDERED: Acetaminophen IV 1GM/100ML * 100 ML ONE ×2 (09:37→12:39)
[2018-07-05] MEDS ORDERED: Neostigmine Methylsulfate* 1 MG/ML 10 ML VIAL (1 mg/ml) ONE ×2 (10:18→12:43)
[2018-07-05] MEDS ORDERED: Glycopyrrolate IV* 0.2 MG/ML 1 ML VIAL ONE ×2 (10:18→12:43)
[2018-07-05] MEDS ORDERED: EPINEPHRINE 1 MG/ML 1 ML VIAL ONE (10:43)
[2018-07-05] MEDS ORDERED: Bupivacaine 0.5% W/EPI SDV* 30 ML VIAL ONE (10:43)
[2018-07-05] MEDS ORDERED: Dexamethasone IV* 4 MG/ML 1 ML (4 MG) ONE (11:46)
[2018-07-05 14:09] VITALS: BP 125/82
--- NOTE | 2018-07-05 23:05 | OP ---
OPERATIVE REPORT: DATE OF SURGERY: 07/05/18 DATE OF : 55 SURGEON: Ibrahima Ferguson MD ANALYTICAL ENGINEER: CICI Ramirez A physician clinical assistant professor was required for the length of the procedure for assistance with positioning, instrumentation, and closure. ANESTHESIOLOGIST: Dr. Nunu Delgadillo. ANESTHESIA: General anesthesia, regional interscalene block anesthesia. PRE-OP DIAGNOSES: 1. Left shoulder subacromial impingement and bursitis. 2. Left shoulder acromioclavicular joint osteoarthritis. 3. Left shoulder rotator cuff tendonitis, possible partial thickness articular sided tear. 4. Left shoulder proximal biceps tendinosis. POST-OP DIAGNOSES: 1. Left shoulder subacromial impingement and bursitis. 2. Left shoulder acromioclavicular joint osteoarthritis. 3. Left shoulder supraspinatus rotator cuff tendon tear, partial thickness, low grade, bursal sided, and rotator cuff tendonitis. 4. Left shoulder proximal biceps tendonitis, superior labrum tear. OPERATIVE PROCEDURE: 1. Left shoulder arthroscopic rotator cuff repair with biologic patch, REGENETEN patch. 2. Left shoulder arthroscopic subacromial decompression. 3. Left shoulder arthroscopic distal clavicle resection. 4. Left should arthroscopic limited debridement including release of biceps tendon. ANTIBIOTICS: Ancef 2 g IV. IV FLUIDS: See anesthesia note. [id number] TIME: 49 minutes. SPECIMEN: None. IMPLANTS: [employer] REGENETEN biologic patch x1, size medium. COMPLICATIONS: None. ESTIMATED BLOOD LOSS: Minimal. 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 She sustained fractures to her left proximal ulnar and distal radius, a left Monteggia fracture, type 2A as well as a distal radius fracture, treated with 2 operative procedures in February 2017, but she also sustained a left shoulder injury at the time of that work injury. As detailed in my history and physical, the patient has not responded sufficiently to a full-spectrum of nonoperative treatment and so opted for surgical management of her left shoulder complaints. Discussed risks and potential complications. DESCRIPTION OF PROCEDURE: In preoperative holding, the patient signed a written consent. Operative extremity was marked in preoperative holding. The patient had decided on a biceps release instead of releasing it if we needed to treat the biceps. I told her this was likely. The patient underwent regional interscalene block by Dr. Delgadillo in preoperative holding. The patient was taken back to the operating room and placed supine on the operating room table. Sedated and intubated. The patient was placed in the lateral decubitus position. Left side up. Patterson bag hardened. Axillary roll placed. All bony prominences padded. Left shoulder placed in the appropriate amount of longitudinal traction, 10 pounds with appropriate amount of forward flexion and abduction. Prepped and draped. Formal surgical time-out performed. I infused 30 cc of normal saline from posterior into the glenohumeral joint. I next established a posterior glenohumeral joint portal under direct visualization. I entered the shoulder joint. I looked immediately for a rotator cuff tendon tear, undersurface, which was much concern for based on preoperative MRI imaging. I found none. The patient had some grade 1 wear of the articular cartilage of the humeral head , but no significant degenerative changes of the joint. I established an anterior portal under direct visualization. I smoothed down the superior labrum and then probed under the biceps anchor. There was an unstable superior labral tear present, so I decided to cut the biceps tendon. The patient had responded very well to a biceps tendon sheath injection preoperatively, although its effects only lasted 2 weeks. I brought in an arthroscopic scissors and cut the biceps tendon near its origin. I smoothed out the remaining superior labrum. I did this with an arthroscopic shaver. No loose bodies. Removed all instruments and fluids from glenohumeral joint and moved to the subacromial space. Established anterior and posterior portals. Then, I established lateral and posterolateral portals under direct visualization. There is much synovitic tissue in this space. I debrided it with an arthroscopic shaver. I noted that there was some partial thickness tear of the supraspinatus. I was able to put a rotator cuff grasper in a certain amount of tendon that had pulled off. Difficult to assess the thickness of this tendon component but there is still significant amount of tendon in place. I did not think a suture anchor bone repair was required. However, the biologic patching make a perfect solution. I asked for the patch and proceeded with my subacromial decompression and distal clavicle resection. Using an arthroscopic marilee, I flattened out the undersurface of the anterior curves of the acromion, so it was nice and flat. Removing any anterior and lateral curve and hook. I then moved to the AC joint. I debrided bursitic tissue with a VAPR cautery device and then I removed 8 mm of the distal end of the clavicle with an arthroscopic marilee. I next moved back to the supraspinatus. I made a superolateral skin incision to place my cannula. I placed the graft through my lateral portal. Graft put in place. I placed exclusively PLLA mildred in all parts of the graft to keep it in place. I liked the placement of my biologic graft, patch. It was very well stable to probing and to internal and external rotation of the humerus. Instruments and fluids removed from the subacromial space. Skin incisions closed with [id number] and 12 stitches using nylon 3-0 suture. Xeroform, 4x4s, ABDs, foam tape. The patient was placed in a sling. DISPOSITION: The patient was discharged home when medically stable. Percocet as needed for pain control. The patient will start physical therapy immediately according to the REGENETEN protocol. The patient will see me in clinic in 10 to 14 days postoperatively. [id number]/[facility] #: [id number] ROBERTA
== END 2018-07-05 14:11 | disposition home or self-care (01) ==
LOC: OR 08:38
PROVIDERS: ATTEND Orthopaedic Surgery
DX: S46.012A Strain of muscle(s) and tendon(s) of the rotator cuff of left shoulder, initial encounter (principal); S43.492A Other sprain of left shoulder joint, initial encounter; W19.XXXA Unspecified fall, initial encounter; Y92.219 Unspecified school as the place of occurrence of the external cause; Y99.0 Civilian activity done for income or pay; M75.42 Impingement syndrome of left shoulder; M75.52 Bursitis of left shoulder; M19.012 Primary osteoarthritis, left shoulder; Z72.0 Tobacco use; G89.18 Other acute postprocedural pain
CPT/HCPCS: C1713; J0690; J1100; J1885; J2250; J2405; J2704; J2710; J2765; J2795; J3010